=== PATIENT | male | born 1980 | race Two or more races ===

== ENCOUNTER 2023-08-20 22:48 | Emergency (ER) | payer OTHER ==
[~2023-08-20] VITALS: Ht 172.7 cm; Wt 91.0 kg
[2023-08-20 23:01] VITALS: BP 128/72; PULSE 69; RESP 17; TEMP 98.3
[2023-08-21] MEDS ORDERED: CLIN-142 PO (00:31)
[2023-08-21] MEDS ORDERED: BACITRACIN 0.9 GM PACKET OINTMENT TP ONE (00:45)
== END 2023-08-21 00:58 | disposition home or self-care (01) ==
LOC: EMS 22:48
DX: L03.90 Cellulitis, unspecified (principal); F17.210 Nicotine dependence, cigarettes, uncomplicated; F15.90 Other stimulant use, unspecified, uncomplicated
CPT/HCPCS: 99282; Z7502; Z7610

== ENCOUNTER 2025-07-06 09:26 | Emergency (ER) | payer MEDICAID, OTHER ==
[~2025-07-06] VITALS: Ht 172.7 cm; Wt 100.0 kg
[~2025-07-06 09:26] MED LIST: CLIN-142 PO
[2025-07-06 09:30] VITALS: BP 121/72; PULSE 88; RESP 18; TEMP 97.9; O2SAT 99
[2025-07-06] MEDS ORDERED: LIDOCAINE 1% 10 ML VIAL ONE (10:19)
[2025-07-06] MEDS: LIDOCAINE 1% 10 ML VIAL SQ ONE (10:21)
[2025-07-06] MEDS: SULFAMETHOX/TRIMETH DS 800-160 MG/TABLET PO ONE (11:26)
[2025-07-06] MEDS: IBUPROFEN 600 MG TABLET PO ONE (11:27)
[2025-07-06] MEDS: CEPHALEXIN MONOHYDRATE 500 MG CAPSULE PO ONE (11:27)
[2025-07-06] MEDS: OxyCODONE HCL/ACETAMINOPHEN 5-325 MG TABLET PO ONE (11:31)
[2025-07-06] MEDS ORDERED: CEPH-558 PO (11:50)
[2025-07-06] MEDS ORDERED: PERCT PO (11:50)
[2025-07-06] MEDS ORDERED: IBUP-1492 PO (11:50)
[2025-07-06] MEDS ORDERED: SULF-261 PO (11:50)
== END 2025-07-06 12:00 | disposition home or self-care (01) ==
LOC: EMS 09:31
DX: L02.213 Cutaneous abscess of chest wall (principal); F15.10 Other stimulant abuse, uncomplicated; F17.210 Nicotine dependence, cigarettes, uncomplicated
CPT/HCPCS: 99284; 10060; J3490